=== PATIENT | male | born 1960 | race Caucasian/White ===

== ENCOUNTER 2019-09-26 07:45 | Outpatient (CLI) | payer BC, SELFPAY ==
--- NOTE | 2019-09-26 07:56 | ECHO_ITS ---
Patient Info Name: Nick Adame Age: 59 years : 1960 Gender: Male Ht: 70 in Wt: 205 lbs BSA: 2.17 m2 HR: 80 bpm BP: 150 / 99 mmHg Heart Rhythm: Sinus Rhythm Exam Date: 09/26/2019 8:04 AM Exam Location: [facility] Patient Status: Outpatient Admit Date: 09/26/2019 Staff Ordering Physician: Aileen Beltran MD Biometrics Consultant: Mary Domínguez RDCS Attending Provider: Aileen Beltran MD Referring Physician: Devin SALAS; Exam Type: CA echo doppler color flow Study Info Indications Z82.49 - Family history of ischemic heart disease and other diseases of the circulatory system Complete two-dimensional, color flow and Doppler transthoracic echocardiogram is performed. Summary 1. Left ventricular chamber dimension is normal. 2. Left ventricular systolic function is normal, estimated at 60-65%. 3. The left ventricular diastolic function is grade I diastolic dysfunction. 4. E/e' 7 is not elevated. 5. There is mild aortic valve sclerosis. 6. There is mild mitral valve regurgitation. Left Ventricle E/e' 7 is not elevated. Left ventricular chamber dimension is normal. Left ventricular systolic function is normal, estimated at 60-65%. The left ventricular diastolic function is grade I diastolic dysfunction. Right Ventricle Right ventricular chamber dimension is normal. Right ventricular systolic function is normal. Left Atria Left atrial chamber dimension is normal. Right Atria Right atrial chamber dimension is normal. Aortic Valve The aortic valve is trileaflet. There is mild aortic valve sclerosis. There is no aortic valve stenosis. There is no aortic valve regurgitation. Pulmonic Valve There is no pulmonic regurgitation. Mitral Valve There is no mitral valve stenosis. There is mild mitral valve regurgitation. Tricuspid Valve There is no tricuspid valve regurgitation. Pericardium/Pleural There is no pericardial effusion. Inferior Vena Cava Normal inferior vena cava with >50% collapse upon inspiration consistent with normal right atrial pressure, 5 mmHg. Aorta The aortic root size at the sinus of Valsalva is normal. Left Ventricular Outflow Tract Name Value Normal LVOT 2D LVOT Diameter 2.0 cm LVOT Doppler LVOT Peak Gradient 3 mmHg LVOT Mean Gradient 2 mmHg LVOT VTI 19 cm LVOT VTI/AV VTI Ratio 0.6 LVOT Stroke Volume 60 ml LVOT CO 11.5 l/min LVOT CI 5.5 l/min/m2 Pulmonic Valve Name Value Normal RVOT Doppler RVOT Peak Gradient 1 mmHg PV Doppler PV Peak Gradient 2 mmHg Mi
[2019-09-26 09:49] LABS: Hemoglobin A1C 7.4 % (<5.7)
== END 2019-09-26 07:46 | disposition home or self-care (01) ==
PROVIDERS: PCP Family Medicine; Visit Provider Family Medicine
DX: E11.9 Type 2 diabetes mellitus without complications (principal); R00.2 Palpitations; I10 Essential (primary) hypertension; Z82.49 Family history of ischemic heart disease and other diseases of the circulatory system; I35.8 Other nonrheumatic aortic valve disorders; I34.0 Nonrheumatic mitral (valve) insufficiency
CPT/HCPCS: 36415; 83036; 93306

== ENCOUNTER → 2022-04-05 09:54 | Outpatient (CLI) | payer OTHER, SELFPAY ==
--- NOTE | ~2022-04-05 | XR_ITS ---
EXAMINATION:XR cervical spine 4-5V DATE: 04/05/2022 10:05 INDICATION: Right-sided neck pain and arm numbness TECHNIQUE: AP, lateral, lateral swimmers and odontoid views of the cervical spine are provided. COMPARISON: None FINDINGS: Alignment is normal. Odontoid is intact. Normal atlantoaxial interval. Vertebral body heights are no rmal. Mild disc height loss with small anterior endplate osteophytes at C4-C5. Mild osteoarthritis at a few of the uncovertebral and facet joints. Atherosclerotic calcifications at the bilateral carotid bulbs. Prevertebral soft tissues are normal. Visualized apices of lungs are clear. IMPRESSION: 1. Mild cervical spondylosis. Reviewed, dictated and finalized at location B.
== END ==
PROVIDERS: PCP Physician Assistant Medical; Visit Provider Physician Assistant Medical
DX: M54.12 Radiculopathy, cervical region (principal); M43.02 Spondylolysis, cervical region
CPT/HCPCS: 72050

== ENCOUNTER 2023-02-28 09:27 | Emergency (ER) | payer OTHER, BC, SELFPAY ==
--- NOTE | ~2023-02-28 | XR_ITS ---
XR elbow RT min 3V 02/28/2023 10:12 INDICATION: Right elbow pain PROCEDURE: 4 views right elbow COMPARISON: No prior studies for comparison. FINDINGS: Fracture, dislocation or subluxation is not identified. The soft tissues appear within norm al limits. No foreign bodies are identified. IMPRESSION: 1: NO ACUTE BONE OR JOINT ABNORMALITY IDENTIFIED. Reviewed, dictated and finalized at location B.
--- NOTE | ~2023-02-28 | XR_ITS ---
[XR ribs RT 2V ] INDICATION: Right rib pain after trauma TECHNIQUE: Frontal projection of the upper right ribs, frontal projection of the lower right ribs, ob lique projection of all the right ribs, frontal inspiratory chest x-ray for interpretation. FINDINGS: There are no displaced rib fractures identified. There are no soft tissue abnormality see n. The lungs are clear. IMPRESSION: 1:No acute displaced rib fractures. Reviewed, dictated and finalized at location B.
--- NOTE | ~2023-02-28 | XR_ITS ---
XR shoulder RT min 2V 02/28/2023 10:13 Indication: Right shoulder pain Procedure: 4 views right shoulder Comparison: No prior studies for comparison. Findings: No fracture, subluxation or dislocation. No soft tissue abnormality. No foreign bodies. The re is mild polyarticular osteoarthritis. Impression: 1: No acute bone or joint abnormality. Reviewed, dictated and finalized at location B. Impression: 1: No acute bone or joint abnormality.
[2023-02-28 09:31] VITALS: BP 167/10; PULSE 88; RESP 18; TEMP 36.8; O2SAT 100
[2023-02-28 10:29] VITALS: BP 130/99; PULSE 84; RESP 18; O2SAT 99
--- NOTE | 2023-02-28 10:40 | ED.FALL ---
HPI - Fall General Chief Complaint: Fall Stated Complaint: fell 3 foot, denies HI Time Seen by Provider: 02/28/23 10:03 Source: patient Mode of arrival: ambulatory Limitations: no limitations History of Present Illness HPI Narrative: Nick is a 63-year-old male patient presenting to the clinic today with complaints of a elevated fall off of the back of a trailer to his work truck. He reports that he slipped on the aluminum and fell on the right side. Is complaining of some right rib pain, right elbow pain, and right shoulder pain. Related Data Home Medications Medication Instructions Recorded Confirmed aspirin 81 mg tablet,delayed 81 mg PO DAILY 04/24/19 02/18/23 release (Adult Aspirin Regimen) Allergies Allergy/AdvReac Type Severity Reaction Status Date / Time Jtisroz-PSF-ItO Reductase AdvReac Unknown Unknown Verified 02/28/23 09:39 Inhibitor [Iwxrpxu-Hlm-Rck Reductase Inhibitor] Review of Systems Review of Systems: Pertinent positives per HPI. Patient denies any fever, chills, rash, headache, visual changes, dizziness, cough, runny nose, sore throat, shortness of breath, chest pain, palpitations, nausea, vomiting, diarrhea, constipation, abdominal pain, or any urinary issues. 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 Substance use: never Substance use type: does not use Lack of Transportation: No Lack of Food: Never True Current Housing: I Have Housing Concerned About Future Housing: No Difficulty Paying Gas/Electric Bills: No Difficulty Paying for Meds: No Currently Unemployed: No Education: High School Diploma/GED Difficulty w/ Childcare or Family Care: No Living arrangements: with family Occupation/Education: occupation Gender identity (if verbalized by the patient): Male Sexual Orientation (if Verbalized by the Patient): Straight or Heterosexual Spiritual care concerns: No Agree to blood products: Yes Comments At the time of my signature, I reviewed and agree with the nursing past medical, surgical, social, and family history. There is no relevant family history pertinent to the patient complaint. Exam Narrative: General: Well-developed, well nourished, in no apparent distress Head: Normocephalic, atraumatic. Cardio: Regular rate and rhythm, s1 and s2 normal, no murmur appreciated. Resp: Clear to auscultation bilaterally, no rhonchi, rales, wheezing or rubs. Musculoskeletal: No deformity, tender to palpation over the anterior and posterior right shoulder, right posterior elbow, and right anterior ribs just below breast, no bruising noted to these areas however there is mild swelling over the right elbow, limited range of motion to the shoulder and the elbow due to pain, unable to lift shoulder above head without pain, and negative empty can and full can test, drop-arm test is negative, muscle strength strong and equal, peripheral pulse strong, no edema, no cyanosis, normal gait and station Course Course Emergency Course: Portions of this record may have been created with voice recognition software. Vital Signs V
[2023-02-28] MEDS: KETOROLAC (*BKC) 60 MG/2 ML VIAL IM (10:46)
== END 2023-02-28 11:12 | disposition home or self-care (01) ==
PROVIDERS: Emergency Provider Nurse Practitioner Family; PCP Family Medicine
DX: S20.211A Contusion of right front wall of thorax, initial encounter (principal); S50.01XA Contusion of right elbow, initial encounter; S46.911A Strain of unspecified muscle, fascia and tendon at shoulder and upper arm level, right arm, initial encounter; F17.210 Nicotine dependence, cigarettes, uncomplicated; I10 Essential (primary) hypertension; E11.9 Type 2 diabetes mellitus without complications; F41.9 Anxiety disorder, unspecified; F32.A Depression, unspecified; V85.4XXA Person injured while boarding or alighting from special construction vehicle, initial encounter
CPT/HCPCS: 71100; 73030; 73080; 96372; 99284; J1885

== ENCOUNTER 2023-03-06 13:30 | Emergency (ER) | payer BC, SELFPAY ==
--- NOTE | 2023-03-06 13:35 | ED.GENADULT ---
HPI - General Adult General Chief complaint: Unspecified Stated complaint: Pain in right rib Time Seen by Provider: 03/06/23 13:53 Source: patient and RN notes reviewed Mode of arrival: ambulatory Limitations: no limitations History of Present Illness HPI narrative: 63-year-old male presents with concern for right-sided rib pain, pain between his neck and shoulder on the right side. Reports he fell at work approximately 6 days ago. Reports he was seen in the emergency room and had negative x-rays of his elbow, shoulder, ribs. Reports he has been taking ibuprofen every night. Reports he uses to go back to work tomorrow but does not think he can because of the pain. He has an appointment with his primary care doctor on Tuesday. MD complaint: Rib pain Related Data Home Medications Medication Instructions Recorded Confirmed aspirin 81 mg tablet,delayed 81 mg PO DAILY 04/24/19 03/03/23 release (Adult Aspirin Regimen) Allergies Allergy/AdvReac Type Severity Reaction Status Date / Time Fylxebv-TFR-XyQ Reductase AdvReac Unknown Unknown Verified 03/03/23 14:38 Inhibitor [Gkatolj-Wru-Zgj Reductase Inhibitor] Review of Systems Review of Systems: CONSTITUTIONAL: Denies malaise, chills, sweats, or fever. CARDIOVASCULAR: Denies chest pain, palpitations, or edema. RESPIRATORY: Denies cough or dyspnea. SKIN: Denies rash or itching, bruising, redness, swelling. 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 Substance use: never Substance use type: does not use Lack of Transportation: No Lack of Food: Never True Current Housing: I Have Housing Concerned About Future Housing: No Difficulty Paying Gas/Electric Bills: No Difficulty Paying for Meds: No Currently Unemployed: No Education: High School Diploma/GED Difficulty w/ Childcare or Family Care: No Living arrangements: with family Occupation/Education: occupation Gender identity (if verbalized by the patient): Male Sexual Orientation (if Verbalized by the Patient): Straight or Heterosexual Spiritual care concerns: No Agree to blood products: Yes Comments At time of signature, agree with nursing past medical, surgical, social and family history. There is no relevant family history pertinent to the presenting complaint Exam Narrative: GENERAL: Well-appearing, well-nourished, and in no acute distress. HEAD: Normocephalic, atraumatic. EYES: PERRLA, conjunctivae clear NECK: Supple. CHEST: Speaks in full sentences. No respiratory distress. HEART: Regular rate and rhythm. Normal and equal peripheral pulses. EXTREMITIES: Right upper extremity has normal strength and sensation, limited with full extension range of motion. No edema, erythema, or ecchymosis. Normal sensation with sensitivity to light touch and pain. Trapezius and right rib tenderness. No open wounds, no skin tenting, no devitalized tissue or atrophy, no trophic c
[2023-03-06 13:38] VITALS: BP 138/104; PULSE 110; RESP 16; TEMP 36.7; O2SAT 97
== END 2023-03-06 14:05 | disposition home or self-care (01) ==
PROVIDERS: Emergency Provider Nurse Practitioner; PCP Family Medicine
DX: S29.012A Strain of muscle and tendon of back wall of thorax, initial encounter (principal); R07.81 Pleurodynia; W19.XXXA Unspecified fall, initial encounter; Z79.82 Long term (current) use of aspirin; I10 Essential (primary) hypertension; E78.2 Mixed hyperlipidemia; E11.9 Type 2 diabetes mellitus without complications; F17.220 Nicotine dependence, chewing tobacco, uncomplicated; F17.210 Nicotine dependence, cigarettes, uncomplicated
CPT/HCPCS: 99213; G0463

== ENCOUNTER 2023-03-11 00:28 | Day surgery (SDC) | payer BC, SELFPAY ==
[2023-02-18 14:22] VITALS: BMI 30.2
--- NOTE | 2023-03-02 16:05 | PM.HPGS ---
History of Present Illness History of Present Illness Consent: Risks, benefits, and alternatives have been discussed and questions answered. Patient agrees to proceed with procedure. Chief complaint: hx colon polyps Narrative: Nick Adame is a 63 year old male referred for colon cancer screening. He has a history of polyps. 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 Substance use: never Substance use type: does not use Lack of Transportation: No Lack of Food: Never True Current Housing: I Have Housing Concerned About Future Housing: No Difficulty Paying Gas/Electric Bills: No Difficulty Paying for Meds: No Currently Unemployed: No Education: High School Diploma/GED Difficulty w/ Childcare or Family Care: No Living arrangements: with family Occupation/Education: occupation Gender identity (if verbalized by the patient): Male Sexual Orientation (if Verbalized by the Patient): Straight or Heterosexual Spiritual care concerns: No Agree to blood products: Yes Meds Home Medications and Allergies Home Medications Medication Instructions Recorded Confirmed Type aspirin 81 mg tablet,delayed 81 mg PO DAILY 04/24/19 02/18/23 History release (Adult Aspirin Regimen) blood sugar diagnostic (OneTouch #300 ea 09/23/21 02/18/23 Rx Verio test strips) blood sugar diagnostic (OneTouch #100 ea 09/24/21 02/18/23 Rx Verio test strips) glimepiride 4 mg tablet 8 mg PO QAM #180 tabs 05/06/22 02/18/23 Rx lisinopril 40 mg tablet 40 mg PO DAILY #90 tabs 05/06/22 02/18/23 Rx blood-glucose sensor (FreeStyle #1 ea 07/12/22 02/18/23 Rx Cortez 3 Sensor device) sildenafil 50 mg tablet 50 mg PO DAILY PRN sexual activity 08/05/22 02/18/23 Rx #10 tabs ezetimibe 10 mg tablet 10 mg PO DAILY #90 tabs 12/14/22 02/18/23 Rx metformin 1,000 mg tablet 1,000 mg PO BID #180 tabs 12/14/22 02/18/23 Rx tamsulosin 0.4 mg capsule 0.4 mg PO DAILY #30 caps 02/01/23 02/18/23 Rx zolpidem 10 mg tablet 10 mg PO QPM PRN sleep #90 tabs 02/09/23 02/18/23 Rx Allergies Allergy/AdvReac Type Severity Reaction Status Date / Time Woiobbu-IGA-GmA Reductase AdvReac Unknown Unknown Verified 02/28/23 09:39 Inhibitor [Gbodiip-Whb-Wkt Reductase Inhibitor] Assessment and Plan Assessment and plan (1) Colon cancer screening: Code(s): Z12.11 - Encounter for screening for malignant neoplasm of colon Status: Acute Assessment and Plan: Colonoscopy with possible biopsy or polypectomy or cautery or injection of substances.
--- NOTE | 2023-03-10 14:34 | PM.HPGS ---
History of Present Illness History of Present Illness Consent: Risks, benefits, and alternatives have been discussed and questions answered. Patient agrees to proceed with procedure. Chief complaint: hx colon polyps Narrative: Nick Adame is a 63 year old male who was referred for colon cancer screening. He has had polyps removed in the past. 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 Substance use: never Substance use type: does not use Lack of Transportation: No Lack of Food: Never True Current Housing: I Have Housing Concerned About Future Housing: No Difficulty Paying Gas/Electric Bills: No Difficulty Paying for Meds: No Currently Unemployed: No Education: High School Diploma/GED Difficulty w/ Childcare or Family Care: No Living arrangements: with family Occupation/Education: occupation Gender identity (if verbalized by the patient): Male Sexual Orientation (if Verbalized by the Patient): Straight or Heterosexual Spiritual care concerns: No Agree to blood products: Yes Meds Home Medications and Allergies Home Medications Medication Instructions Recorded Confirmed Type aspirin 81 mg tablet,delayed 81 mg PO DAILY 04/24/19 03/08/23 History release (Adult Aspirin Regimen) blood sugar diagnostic (OneTouch #300 ea 09/23/21 03/08/23 Rx Verio test strips) blood sugar diagnostic (OneTouch #100 ea 09/24/21 03/08/23 Rx Verio test strips) glimepiride 4 mg tablet 8 mg PO QAM #180 tabs 05/06/22 03/11/23 Rx lisinopril 40 mg tablet 40 mg PO DAILY #90 tabs 05/06/22 03/08/23 Rx blood-glucose sensor (FreeStyle #1 ea 07/12/22 03/08/23 Rx Cortez 3 Sensor device) sildenafil 50 mg tablet 50 mg PO DAILY PRN sexual activity 08/05/22 03/08/23 Rx #10 tabs ezetimibe 10 mg tablet 10 mg PO DAILY #90 tabs 12/14/22 03/11/23 Rx metformin 1,000 mg tablet 1,000 mg PO BID #180 tabs 12/14/22 03/11/23 Rx tamsulosin 0.4 mg capsule 0.4 mg PO DAILY #30 caps 02/01/23 03/08/23 Rx zolpidem 10 mg tablet 10 mg PO QPM PRN sleep #90 tabs 02/09/23 03/08/23 Rx cyclobenzaprine 10 mg tablet 10 mg PO TID PRN muscle spasm #20 03/06/23 03/08/23 Rx tabs ibuprofen 800 mg tablet 800 mg PO Q6H PRN pain #30 tabs 03/06/23 03/08/23 Rx sitagliptin phosphate 100 mg 100 mg PO DAILY #90 tabs 03/08/23 03/08/23 Rx tablet (Januvia) Allergies Allergy/AdvReac Type Severity Reaction Status Date / Time Rxtbyjo-OUG-HwL Reductase AdvReac Unknown Unknown Verified 03/11/23 06:08 Inhibitor [Amiwocn-Bvs-Oad Reductase Inhibitor] Exam Const: General: alert Orientation/consciousness: patient oriented x3 Resp: Auscultation: clear to auscultation bilaterally Cardio: Rhythm: regular rhythm GI: GI Palp: Yes Soft to palpation and No Tenderness to palpation present (GI) Neuro: General: patient oriented x3 Assessment and Plan Assessment and plan (1) Colon cancer screening: Code(s): Z12.11 - Encounter for scree
[2023-03-11 06:11] VITALS: BP 137/94; PULSE 108; RESP 20; TEMP 36; O2SAT 98
[2023-03-11] MEDS: LACTATED RINGERS 1,000 ML 150 ML IV CONT (06:21)
[2023-03-11 06:24] LABS: Glucose Point of Care 230 mg/dl (65-105)
--- NOTE | 2023-03-11 07:26 | WPDANESEPPF ---
Anes - Initial Pre Proc Eval Procedure: Operation Date: 03/11/23 07:30 Proposed Procedures p Colonoscopy - Jose Davies MD Date/Time: 03/11/23 07:26 Surgeon: Jose Davies MD Pre Op Diagnosis: hx colon polyps Patient Data Age: 63 Gender: M Height: 1.78 m Weight: 93.1 kg Last Vital Signs Temp 96.8 F L 03/11/23 06:11 Pulse 108 H 03/11/23 06:11 Resp 20 03/11/23 06:11 BP 137/94 H 03/11/23 06:11 Pulse Ox 98 03/11/23 06:11 O2 Del Method Room Air 03/11/23 06:11 Allergies Allergy/AdvReac Type Severity Reaction Status Date / Time Qtvlfwq-NSM-ZeH Reductase AdvReac Unknown Unknown Verified 03/11/23 06:08 Inhibitor [Tjqlyvo-Zkd-Unx Reductase Inhibitor] Home Medications Medication Instructions Recorded Confirmed Type aspirin 81 mg tablet,delayed 81 mg PO DAILY 04/24/19 03/08/23 History release (Adult Aspirin Regimen) blood sugar diagnostic (OneTouch #300 ea 09/23/21 03/08/23 Rx Verio test strips) blood sugar diagnostic (OneTouch #100 ea 09/24/21 03/08/23 Rx Verio test strips) glimepiride 4 mg tablet 8 mg PO QAM #180 tabs 05/06/22 03/11/23 Rx lisinopril 40 mg tablet 40 mg PO DAILY #90 tabs 05/06/22 03/08/23 Rx blood-glucose sensor (FreeStyle #1 ea 07/12/22 03/08/23 Rx Cortez 3 Sensor device) sildenafil 50 mg tablet 50 mg PO DAILY PRN sexual activity 08/05/22 03/08/23 Rx #10 tabs ezetimibe 10 mg tablet 10 mg PO DAILY #90 tabs 12/14/22 03/11/23 Rx metformin 1,000 mg tablet 1,000 mg PO BID #180 tabs 12/14/22 03/11/23 Rx tamsulosin 0.4 mg capsule 0.4 mg PO DAILY #30 caps 02/01/23 03/08/23 Rx zolpidem 10 mg tablet 10 mg PO QPM PRN sleep #90 tabs 02/09/23 03/08/23 Rx cyclobenzaprine 10 mg tablet 10 mg PO TID PRN muscle spasm #20 03/06/23 03/08/23 Rx tabs ibuprofen 800 mg tablet 800 mg PO Q6H PRN pain #30 tabs 03/06/23 03/08/23 Rx sitagliptin phosphate 100 mg 100 mg PO DAILY #90 tabs 03/08/23 03/08/23 Rx tablet (Januvia) Laboratory Tests 03/11/23 06:19 POC Capillary Glucose 230 H mg/dl (65-105) Patient hx anesthesia problems: none Family hx anesthesia problems: none Results Review: All pre-operative results and documents have been reviewed as part of the pre-operative evaluation. 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 Substance use: never Substance use type: does not use Lack of Transportation: No Lack of Food: Never True Current Housing: I Have Housing Concerned About Future Housing: No Difficulty Paying Gas/Electric Bills: No Difficulty Paying for Meds: No Currently Unemployed: No Education: High School Diploma/GED Difficulty w/ Childcare or Family Care: No Living arrangements: with family Occupation/Education: occupation Gender identity (if verbalized by the patient): Male Sexual Orientation (if Verbalized by the Patient): Straight or Heterosexual Spiritual care concerns: No Agree to blood products: Yes Anes - Eval Final PreProcedure Day of Procedure 03/11/23 07:26 Patient weight: normal Heart: regular rate and rhythm Lungs: clear to auscultation Airway: Mallampati scale cl
[2023-03-11] MEDS: SIMETHICONE ORAL SUSPENSION 20 MG/0.3 ML 30 ML BOTTLE 0.6 ML IRRIGATION (07:36)
[2023-03-11 07:47] VITALS: BP 87/59; PULSE 102; RESP 19; O2SAT 95
[2023-03-11 07:57] VITALS: BP 90/61; PULSE 100; RESP 19; O2SAT 95
[2023-03-11 08:08] VITALS: BP 99/72; PULSE 91; RESP 19; O2SAT 98
== END 2023-03-11 08:20 | disposition home or self-care (01) ==
PROVIDERS: PCP Family Medicine; Visit Provider Internal Medicine Gastroenterology
PROC: 0DJD8ZZ Inspection of Lower Intestinal Tract, Via Natural or Artificial Opening Endoscopic (ICD-10-PCS; CPT 45378; principal; 2023-03-11 07:30)
DX: Z12.11 Encounter for screening for malignant neoplasm of colon (principal); K57.30 Diverticulosis of large intestine without perforation or abscess without bleeding; K64.8 Other hemorrhoids; Z86.010 Personal history of colon polyps; I10 Essential (primary) hypertension; E78.2 Mixed hyperlipidemia; E11.9 Type 2 diabetes mellitus without complications; F41.8 Other specified anxiety disorders; F17.210 Nicotine dependence, cigarettes, uncomplicated; F17.220 Nicotine dependence, chewing tobacco, uncomplicated; Z79.82 Long term (current) use of aspirin; Z79.84 Long term (current) use of oral hypoglycemic drugs
CPT/HCPCS: 45378; 82948; J2704; J7120

== ENCOUNTER → 2023-04-26 08:41 | Outpatient (CLI) | payer OTHER, SELFPAY ==
--- NOTE | ~2023-04-26 | MR_ITS ---
EXAMINATION: MR shoulder RT wo con DATE: 04/26/2023 09:17 INDICATION: Right shoulder pain TECHNIQUE: Magnetic resonance imaging (MRI) of the right shoulder was performed without intravenous c ontrast. Sequences included axial PD-weighted FS FSE, coronal oblique PD-weighted FS FSE, coronal obl ique T2-weighted FS FSE, sagittal PD-weighted FS FSE, and sagittal T1-weighted SE. COMPARISON: None. FINDINGS: Coracoacromial arch: The acromion undersurface is curved in morphology (type II). Small subacromial spurs at the acromial insertion of the coracoacromial ligament. The ligament appears frayed with partial detachment along p ortions of the insertion along the lateral margin of the anterior acromion. Moderate acromioclavicula r osteoarthritis but without significant marginal osteophytes. Rotator cuff: Mild to moderate supraspinatus and infraspinatus tendinopathy with full-thickness tear measuring 3 cm AP and 3.5 cm medial to lateral measured across the level of the apex of the humeral head which invo lves entire supraspinatus and the conjoined portion of the supraspinatus and infraspinatus tendons. T he tear continues posteriorly as a partial-thickness articular sided tear involving approximately two thirds of the thickness of the more posterior infraspinatus tendon. The teres minor tendon is normal . Moderate subscapularis tendinopathy with partial-thickness tear involving the cephalad two thirds o f the lesser tuberosity footplate. The caudal third of the lesser tuberosity insertion remains intact as does the bursal side of the tendon which remains contiguous with the intact transverse humeral li gament. The long head of the biceps tendon is partially subluxed across the medial rim of the intertu bercular groove however there appears to remain an intact biceps angeles sling preventing medial sublu xation of the long head biceps tendon. There is mild fatty atrophy of the supraspinatus and infraspin atus muscle bellies with more prominent decreased cross-sectional area of the supraspinatus muscle be lly at the supraspinatus fossa resulting from medial retraction. Biceps tendon, glenoid labrum and glenohumeral cartilage: There is mild tendinopathy and longitudinal split tearing of the intra-articular and proximal extra a rticular portion of the long head biceps tendon. Mild focal degenerative tearing of the 10:30-11:30 p osition of the posterosuperior glenoid labrum. There is mild partial-thickness cartilage loss with sm ooth chondral surface along the cephalad half of the coronoid and diffusely throughout the humeral he ad. Fluid: Small glenohumeral joint effusion which extends through the full-thickness rotator cuff tear to commu nicate with small amount of fluid in the subacromial/subdeltoid bursa. No loose osteochondral bodies. Bones: Normal marrow signal with no edema, fracture or abnormal marrow replacing process. IMPRESSION: 1. Large rotator cuff tear, full-thickness involving the supraspinatus and conjoined supraspinatus an d infraspinatus tendons and partial-thickness at the more posterior infraspinatus and more anterior s ubscapularis tendons. There is retraction of the supraspinatus muscle belly but only mild fatty atrop hy of the supraspinatus and infraspinatus tendons suggesting the tear is likely relatively recent. 2. Mild glenohumeral osteoarthritis with small region of degeneration at the posterosuperior glenoid labrum. 2. Moderate acromioclavicular osteoarthritis. Reviewed, dictated and finalized at location A. PRESS OPERATOR IMPRESSION: 1. Large rotator cuff tear, full-thickness involving the supraspinatus and conj oined supraspinatus and infraspinatus tendons and partial-thickness at the more posterior infraspinatus and more anterior subscapularis tendons. There is retr action of the supras
== END ==
PROVIDERS: PCP Orthopaedic Surgery; Visit Provider Orthopaedic Surgery
DX: M25.511 Pain in right shoulder (principal); M75.101 Unspecified rotator cuff tear or rupture of right shoulder, not specified as traumatic; M19.011 Primary osteoarthritis, right shoulder
CPT/HCPCS: 73221

== ENCOUNTER 2023-05-12 15:24 | Outpatient (CLI) | payer OTHER, SELFPAY ==
--- NOTE | 2023-05-12 | ECG_ITS ---
Measurements Intervals [place] Rate: 94 P: 45 NV: 173 QRS: 0 QRSD: 105 T: -3 QT: 336 QTc: 421 Interpretive Statements SINUS RHYTHM NONSPECIFIC T-WAVE ABNORMALITY NO PREVIOUS ECG AVAILABLE FOR COMPARISON Electronically Signed On 05-12-2023 19:19:59 LOAN ADVISER by Johanny Mitchell M.D.
--- NOTE | ~2023-05-12 | XR_ITS ---
EXAMINATION: XR chest 2V 05/12/2023 15:58 INDICATION: Preop PROCEDURE: 2 view chest COMPARISON: 02/28/2023 FINDINGS: The lungs are clear. The cardiomediastinal silhouette is within normal limits. There are no pleural effusions. There is no pneumothorax suspected. IMPRESSION: 1: NO ACUTE CARDIOPULMONARY DISEASE. Reviewed, dictated and finalized at location L. /GYN DOCTOR
[2023-05-12 16:00] LABS: Basophils Absolute Auto 0.1 K/mm3 (0.0-0.1); Basophils Percent Auto 0.5 % (0.2-1.2); Eosinophils Absolute Auto 0.1 K/mm3 (0-0.3); Eosinophils Percent Auto 1.1 % (0-4.4); Hematocrit 48.3 % (42.0-52.0); Hemoglobin 16.6 g/dL (14.0-18.0); Immature Granulocyte Absolute 0.04 K/mm3 (0.00-0.031); Immature Granulocyte Percent A 0.4 % (0-0.5); Lymphocytes Absolute Auto 2.83 K/mm3 (0.9-3.2); Lymphocytes Percent Auto 25.7 % (18.3-44.2); Mean Corpuscular HGB Conc 34.4 g/dl (32-36); Mean Corpuscular Hemoglobin 33.7 pg (26-34); Mean Corpuscular Volume 98.2 fl (80-100); Mean Platelet Volume 9.9 fl (7.4-10.4); Monocytes Absolute Auto 0.7 K/mm3 (0.1-0.6); Monocytes Percent Auto 6.1 % (2.6-8.5); Neutrophils Absolute Auto 7.3 K/mm3 (1.3-6.7); Neutrophils Percent Auto 66.2 % (45.5-73.1); Platelet Count Result 240 k/mm3 (150-375); Red Blood Count 4.92 M/mm3 (4.6-6.20); Red Cell Distribution Width 11.4 % (11.5-14.5)
[2023-05-12 16:11] LABS: Alanine Aminotransferase 43 U/L (6-50); Albumin Level 4.9 g/dL (3.5-5.1); Alkaline Phosphatase 55 U/L (38-126); Anion Gap 11 mmol/L (8-16); Aspartate Amino Transferase 28 U/L (17-59); Blood Urea Nitrogen 10 mg/dL (9-20); Calcium 9.6 mg/dL (8.4-10.2); Carbon Dioxide 23 mmol/L (22-30); Chloride 103 mmol/L (98-107); Estimated Glomerular Filt Rate > 60; Glucose 135 mg/dL (65-110); Potassium 3.8 mmol/L (3.4-5.0); Sodium 137 mmol/L (137-145)
== END 2023-05-12 15:25 | disposition home or self-care (01) ==
PROVIDERS: PCP Physician Assistant Medical; Visit Provider Orthopaedic Surgery
DX: Z01.812 Encounter for preprocedural laboratory examination (principal); Z01.810 Encounter for preprocedural cardiovascular examination; Z01.811 Encounter for preprocedural respiratory examination; M75.121 Complete rotator cuff tear or rupture of right shoulder, not specified as traumatic; R94.31 Abnormal electrocardiogram [ECG] [EKG]
CPT/HCPCS: 36415; 71046; 80053; 85025; 93005

== ENCOUNTER 2024-04-25 11:17 | Outpatient (CLI) | payer BC, SELFPAY ==
--- NOTE | 2024-04-25 | ECG_ITS ---
Test Date: 2024-04-25 12:08:31 Measurements Intervals [place] Rate: 89 P: 35 LA: 170 QRS: 4 QRSD: 94 T: 23 QT: 337 QTc: 412 Interpretive Statements SINUS RHYTHM WITH OCCASIONAL SUPRAVENTRICULAR PREMATURE COMPLEXES DELAYED PRECORDIAL R/S TRANSITION BASELINE ARTIFACT- I, II, AVR BORDERLINE ECG No previous ECG available for comparison Electronically Signed On 04-25-2024 12:31:04 SWITCHBOARD OPERATOR RECEPTIONIST by Paolo Larry D.O.
--- NOTE | ~2024-04-25 | XR_ITS ---
XR chest 2V Ordering provider: Ancelmo Odonnell MD History: 64 years Male with . ENCOUNTER FOR PREPROCEDURAL EXAMINATION . Comparison: None. FINDINGS: MEDIASTINUM: The cardiac silhouette is not enlarged. Opacity near the cardiac apex which may be a fat pad. Three-month follow-up advised to exclude a nodule.. LUNGS: No infiltrates, effusions or pneumothorax. OTHER: No free air under the diaphragm. Degenerative changes of the spine. IMPRESSION: No acute cardiopulmonary pathology. Reviewed, dictated and finalized at location A. CATED REGIONAL DRIVER
[2024-04-25 11:47] LABS: Hemoglobin 16.5 g/dL (14.0-18.0); Mean Corpuscular HGB Conc 35.1 g/dl (32-36); Mean Corpuscular Volume 99.6 fl (80-100); Mean Platelet Volume 9.3 fl (7.4-10.4); Platelet Count Result 263 k/mm3 (150-375); Red Blood Count 4.72 M/mm3 (4.6-6.20); Red Cell Distribution Width 11.9 % (11.5-14.5); White Blood Count 10.4 K/mm3 (4.5-10.0)
[2024-04-25 12:03] LABS: Alanine Aminotransferase 30 U/L (6-50); Albumin Level 4.5 g/dL (3.5-5.1); Alkaline Phosphatase 47 U/L (38-126); Anion Gap 9 mmol/L (4-12); Aspartate Amino Transferase 24 U/L (17-59); Bilirubin,Total 0.4 mg/dL (0.2-1.3); Blood Urea Nitrogen 13 mg/dL (9-20); Calcium 9.1 mg/dL (8.4-10.2); Carbon Dioxide 26 mmol/L (22-30); Chloride 104 mmol/L (98-107); Estimated Glomerular Filt Rate > 60; Glucose 163 mg/dL (65-110); Potassium 4.1 mmol/L (3.4-5.0); Sodium 139 mmol/L (137-145)
[2024-04-25 12:47] LABS: Hemoglobin A1C 7.6 % (<5.7)
== END 2024-04-25 11:18 | disposition home or self-care (01) ==
PROVIDERS: PCP Family Medicine; Visit Provider Orthopaedic Surgery
DX: Z01.818 Encounter for other preprocedural examination (principal); G56.01 Carpal tunnel syndrome, right upper limb; R94.31 Abnormal electrocardiogram [ECG] [EKG]
CPT/HCPCS: 36415; 71046; 80053; 83036; 85027; 93005

== ENCOUNTER 2024-06-25 08:04 | Emergency (ER) | payer BC, SELFPAY ==
[2024-06-25 08:18] VITALS: BP 97/74; PULSE 108; RESP 18; TEMP 36.1; O2SAT 98
--- NOTE | 2024-06-25 08:20 | ED.URI ---
HPI - URI/Sore Throat General Chief Complaint: Upper Respiratory Infection Stated Complaint: Upper Respiratory Symptoms Time Seen by Provider: 06/25/24 08:20 Source: patient Mode of arrival: ambulatory Limitations: no limitations History of Present Illness HPI Narrative: 64-year-old male presents with complaint of cough, nasal congestion, fatigue, body aches, chills starting yesterday. Reports his had similar symptoms last week and was given Z pack. Denies nausea vomiting diarrhea. No chest pain or shortness of breath. All systems reviewed and negative except as noted above. Related Data Home Medications ?Medication ?Instructions ?Recorded ?Confirmed ?Last Taken ?Type aspirin 81 mg tablet,delayed 81 mg PO DAILY 04/24/19 03/14/24 Unknown History release (Adult Aspirin Regimen) glimepiride 4 mg tablet 4 mg PO ONCE 03/14/24 03/14/24 Unknown History Allergies Allergy/AdvReac Type Severity Reaction Status Date / Time Wlhlfkh-[id number]-ReQ Reductase AdvReac Unknown Unknown Verified 06/25/24 08:24 Inhibitor (Qxlyuyf-Pbv-Rgq Reductase Inhibitor) Review of Systems Review of Systems: CONSTITUTIONAL: Denies fever. Reports chills, or sweats. EYES: Denies visual changes, redness, or discharge. ENT: Reports rhinorrhea, congestion, sore throat. Denies otalgia. CARDIOVASCULAR: Denies chest pain, palpitations, or edema. RESPIRATORY: Reports cough. Denies dyspnea. GASTROINTESTINAL: Denies abdominal pain, nausea, vomiting, or diarrhea. GENITOURINARY: Denies dysuria or hematuria. SKIN: Denies rash or itching. MUSCULOSKELETAL: Denies back pain, joint pain, or myalgia. NEUROLOGIC: Denies headache, numbness, or weakness. PSYCHIATRIC: Denies anxiety or depression. All other systems reviewed are negative, except as documented in HPI. 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 Substance use: never Substance use type: does not use Lack of Transportation: No Lack of Food: Never True Current Housing: I Have Housing Concerned About Future Housing: No Difficulty Paying Gas/Electric Bills: No Difficulty Paying for Meds: No Currently Unemployed: No Education: High School Diploma/GED Difficulty w/ Childcare or Family Care: No Living arrangements: with family Occupation/Education: occupation Gender identity (if verbalized by the patient): Male Sexual Orientation (if Verbalized by the Patient): Straight or Heterosexual Spiritual care concerns: No Agree to blood products: Yes Comments At time of signature, agree with nursing past medical, surgical, social and family history. There is no relevant family history pertinent to the presenting complaint. Exam Narrative: GENERAL: This is a well-nourished, well-developed patient, patient ill-appearing but no acute distress HEAD: normocephalic, atraumatic. EYES: PERRL. Sclera clear/white. Vision is grossly intact. EARS: External ears normal, auditory canals clear and without drainage, TMs normal without perforation. Hearing grossly intact. NOSE: External nose normal with clear nasal drainage, mild congestion THROAT: Mucous membranes moist, posterior pharynx clear. NECK: Neck supple, non-tender without lymphadenopathy, masses or thyromegaly. CARDIOVASCULAR: Regular rate and rhythm without murmurs, gallops, or rubs. RESPIRATORY: Clear to auscultation. Breath sounds equal bilaterally. No wheezes, rales, or rhonchi. SKIN: warm, Dry, intact with no suspicious lesions or rash, good texture and turgor. NEURO: awake, alert, and oriented to person, place and time. There were no obvious focal neurologic abnormalities. EXTREMITIES: No joint tenderness, effusion, or edema noted. Course Course Level of Care: Express Care Visit Vital Signs Vital signs: Vital Signs Oxygen Delivery Room Air 06/25/24 08:15 Temperature 36.1 C L 06/25/24 08:18 Pulse Rate 108 H 06/25/24 08:18 Respiratory Rate 18 01/20/25 08:18 Blood Pressure 97/74 L 06/25/24 08:18 Pulse Oximetry 98 06/25/24 08:18 Oxygen Delivery Room Air 06/25/24 08:18 Reviewed MDM - URI/Sore Throat MDM Narrative Medical decision making narrative: At time of signature, agree with nursing past medical, surgical, social and family history. There is no relevant family history pertinent to the presenting complaint. Patient positive for COVID. Well-appearing, nontoxic. Lungs clear to auscultation. pt offered paxlovid but did not feel was necessary. Differential Diagnosis Differential diagnosis: Likely upper respiratory infection, sinusitis, viral infection, bronchitis, influenza and other (COVID-19) Lab Data Labs: Lab Results 06/25/24 Range/Units 08:36 POC Influenza A Ag Negative (Negative) POC Influenza B Ag Negative (Negative) POC SARS CoV-2 Ag Positive (Negative) Discharge Plan Discharge Clinical Impression: COVID-19 Patient Disposition: Home, Self-Care Condition: Stable Instructions: COVID-19 (Coronavirus Disease 2019) (ED) Additional Instructions: Your COVID test was positive today. COVID is a virus and symptoms may last 10-14 days. Take [id number] medications to treat her symptoms such as DayQuil NyQuil cold and flu. Drink at least 64 oz of water a day. Follow-up with your primary care physician if symptoms are not improving. Patient Language: Lao Prescriptions: No Action glimepiride 4 mg tablet 4 mg PO ONCE Rx Instructions: administer with breakfast aspirin [Adult Aspirin Regimen] 81 mg tablet,delayed release (DR/EC) 81 mg PO DAILY ezetimibe 10 mg tablet 10 mg PO DAILY Qty: 90 3RF lisinopril 40 mg tablet 40 mg PO DAILY Qty: 90 2RF metformin 1,000 mg tablet 1,000 mg PO BID Qty: 180 3RF Rx Instructions: TAKE WITH MORNING AND EVENING MEALS. sildenafil 50 mg tablet 50 mg PO DAILY PRN (Reason: sexual activity) Qty: 10 12RF Rx Instructions: administer 30 minutes to 4 hours before activity tamsulosin 0.4 mg capsule 0.4 mg PO DAILY Qty: 30 6RF (DME) OneTouch Verio test strips Strip See Rx Instructions .Route Qty: 300 11RF Rx Instructions: As directed daily (DME) OneTouch Verio test strips Strip See Rx Instructions .ROUTE .MEDSUPPLY Qty: 100 1RF Rx Instructions: daily fasting AM match one touch Verio glucometer (DME) FreeStyle Cortez 3 Sensor Device See Rx Instructions .Route Qty: 1 0RF Rx Instructions: As directed cyclobenzaprine 10 mg tablet 10 mg PO TID PRN (Reason: muscle spasm) Qty: 20 0RF empagliflozin 10 mg tablet 10 mg PO QAM Qty: 90 2RF zolpidem 10 mg tablet 10 mg PO QPM PRN (Reason: sleep) Qty: 90 0RF Ozempic 1 mg/dose (4 mg/3 mL) pen injector 1 mg subcut WEEKLY Qty: 3 1RF Follow-up/Referrals: PHYSICIAN,ENTRY MANAGER [Primary Care Provider] - Stand Alone Forms: Work/School Release IP Time of Disposition: 08:31
[2024-06-25 08:40] LABS: EDCOVIDSCREEN Positive (Negative); EDINFLUASCREEN Negative (Negative); EDINFLUBSCREEN Negative (Negative)
== END 2024-06-25 08:41 | disposition home or self-care (01) ==
PROVIDERS: Emergency Provider Nurse Practitioner Family
DX: U07.1 COVID-19 (principal); I10 Essential (primary) hypertension; E78.2 Mixed hyperlipidemia; E11.9 Type 2 diabetes mellitus without complications; Z79.84 Long term (current) use of oral hypoglycemic drugs; F17.220 Nicotine dependence, chewing tobacco, uncomplicated; Z85.828 Personal history of other malignant neoplasm of skin; Z79.82 Long term (current) use of aspirin
CPT/HCPCS: 87426; 87804; 99212; G0463